=== PATIENT | female | born 1955 | race Caucasian/White ===

== ENCOUNTER → 2021-09-22 | Outpatient (CLI) | payer MEDICARE ==
--- NOTE | 2021-09-22 22:50 | BD ---
EXAMINATION TYPE: Axial Bone Density DATE OF EXAM: 09/22/2021 COMPARISON: NONE CLINICAL HISTORY: 66 years year old Female. ICD-10 CODE: Z78.0 ASYMPTOMATIC MENOPAUSAL STATE Height: 68.2 IN Weight: 161 LBS RISK FACTORS HISTORY OF: Active: YES Diet low in dairy products/other sources of calcium: YES Postmenopausal woman: AGE 44 Lost more than 2 inches in height since high school: YES 06/01" MEDICATIONS: Additional Medications: VIT D, DIGOXIN, EXAM MEASUREMENTS: Bone mineral densitometry was performed using the [employer] System. Bone mineral density as measured about the Lumbar spine is: ----- L1-L4(G/cm2): 1.145 T Score Values are as follows: ----- L1: -1.7 ----- L2: -0.8 ----- L3: 0.7 ----- L4: 0.5 ----- L1-L4: -0.3 Bone mineral density BASELINE Bone mineral density about the R hip (g/cm2): 0.802 Bone mineral density about the L hip (g/cm2): 0.790 T Score values are as follows: -----R Neck: -1.7 -----L Neck: -1.8 -----R Total: -0.8 -----L Total: -0.8 Bone mineral density BASELINE FRAX%s: The graph provided illustrates a 10.5 chance for a major osteoporotic fx and a 1.6 chance for the hips probability for fx in 10 years time. IMPRESSION: Osteopenia (T Score between -2.5 and -1). There is slightly increased risk of fracture and the patient may be considered for treatment. Re-Screen 2-5 years. NOTE: T-SCORE=SD OF THE YOUNG ADULT MEAN.
--- NOTE | 2021-09-24 09:39 | MM ---
Reason for exam: screening (asymptomatic). Last mammogram was performed 1 year and 1 month ago. Physical Findings: A clinical breast exam by your physician is recommended on an annual basis and results should be correlated with mammographic findings. MG 3D Screening Mammo W/Cad Bilateral CC and MLO view(s) were taken. Prior study comparison: September 06, 2020, mammogram, performed at [place]. August 15, 2019, mammogram, performed at [place]. July 22, 2017, mammogram, performed at [place]. The breast tissue is extremely dense which could obscure a lesion on mammography. There are benign appearing round calcifications bilaterally. There is no discrete abnormality. ASSESSMENT: Negative, BI-RAD 1 RECOMMENDATION: Routine screening mammogram of both breasts in 1 year. Some consider bilateral ultrasound surveillance in patient with extremely dense fibroglandular tissue.
== END | disposition home or self-care (01) ==
LOC: RADMAMWWP 15:50
PROVIDERS: ATTEND Internal Medicine
DX: Z12.31 Encounter for screening mammogram for malignant neoplasm of breast (principal); M85.89 Other specified disorders of bone density and structure, multiple sites; Z78.0 Asymptomatic menopausal state
CPT/HCPCS: 77063; 77067; 77080

== ENCOUNTER → 2021-10-07 | Outpatient (CLI) | payer MEDICARE | LOC: CPPFTMAIN 12:48 | PROVIDERS: ATTEND Internal Medicine | DX: R05.9 Cough, unspecified (principal) | CPT/HCPCS: 94060; 94726; 94729 ==

== ENCOUNTER → 2022-06-15 | Outpatient (CLI) | payer MEDICARE ==
--- NOTE | 2022-06-15 18:53 | CT ---
EXAMINATION TYPE: CT chest w con DATE OF EXAM: 06/15/2022 COMPARISON: None HISTORY: Dyspnea. Dry cough. Follow up from prior Xray. CT DLP: 185.0 mGycm, Automated exposure control for dose reduction was used. CONTRAST: Performed injected with 100cc mL of Isovue 300. TECHNIQUE: Axial images were obtained at 5 mm thick sections. Reconstructed images are reviewed on [employer] computer in the coronal plane. FINDINGS: There is a 1.4 cm irregular hypoechoic nodule within the anterior right lobe thyroid. This could be further evaluated with ultrasound. An additional 1.1 cm nodules in right lobe thyroid extend ing towards the superior mediastinum. There is a small nodule measuring 0.8 cm in length and the anterior lateral right upper lung field. S eries 4 image 42. Some small adjacent punctate nodules are present, example image series 4 image 41. There is thickening which may be along the major fissure on the left lung base measuring 1.8 x 0.8 cm . Series 4 image 51. No enlarged mediastinal or hilar adenopathy is evident. The ascending aorta diameter at the level o f the main pulmonary artery is 3.4 cm. The main pulmonary artery diameter at the bifurcation is 2.[address] sections are obtained through the upper abdomen. Abdomen is essentially unremarkable. Abnormality correlate with the posterior right lung base finding is not identified. IMPRESSIONS: 1. Small nodule right mid peripheral lung with some thickening along the lateral left major fissure. Consider PET CT for additional evaluation.
== END | disposition home or self-care (01) ==
LOC: RADCTMAIN 13:45
PROVIDERS: ATTEND Internal Medicine Critical Care Medicine
DX: J98.4 Other disorders of lung (principal); R91.1 Solitary pulmonary nodule; R06.00 Dyspnea, unspecified
CPT/HCPCS: 82565; 84520; 71260; 36415; Q9967

== ENCOUNTER → 2022-06-19 | Outpatient (CLI) | payer MEDICARE ==
--- NOTE | 2022-06-22 06:33 | US ---
EXAMINATION TYPE: US thyroid st tissue head/neck DATE OF EXAM: 06/19/2022 COMPARISON: Chest CT 4 days earlier CLINICAL HISTORY: E04.1 THYROID NODULE. thyroid nodule visualized on recent CT GLAND SIZE: Right Lobe: 5.5 x 2.2 x 2.6 cm Overall Parenchyma: heterogenous Left Lobe: 2.9 x 1.0 x 0.8 cm Overall Parenchyma: homogeneous Isthmus Thickness: 0.3 cm NODULES RIGHT: # of nodules measured on right: 3 1. 1.9 X 1.8 x 1.1 cm, mid , mixed cystic and solid, isoechoic nodule, which is wider than tall, wi th smooth margins, without echogenic foci. TR2 Prior size: no prior 2. 1.1 X 1.1 x 1.0 cm, lower , cystic or almost completely cystic, hypoechoic nodule, which is wide r than tall, with smooth margins, with echogenic foci. Prior size: no prior TR4 3. 2.3 X 1.5 x 1.3 cm, mid , solid or almost completely solid, isoechoic nodule, which is wider alee n tall, with smooth margins, with macrocalcifications. Prior size: no prior TR4 LEFT: # of nodules measured on left: 0 ISTHMUS: # of nodules measured in the isthmus: 0 Bilateral neck scanned, no evidence of lymphadenopathy. Slightly larger right thyroid lobe with right-sided nodules detailed above. IMPRESSION: As above. Advise sampling of largest right-sided nodule. 2017 ACR TI-RADS LEVEL: TR-RADS 4 - Moderately Suspicious: Follow if > 1 cm, FNA if > 1.5 cm *Highest TI-RADS level nodule reported
== END | disposition home or self-care (01) ==
LOC: RADUSWWP 16:43
PROVIDERS: ATTEND Internal Medicine
DX: E04.1 Nontoxic single thyroid nodule (principal)
CPT/HCPCS: 76536

== ENCOUNTER → 2022-12-17 | Outpatient (CLI) | payer MEDICARE ==
[2022-12-17 13:43] LABS: African American GFR (CKD) 79 (>60 ml/min/1.73 sqM); Blood Urea Nitrogen 27 mg/dL (7-17); Non-African American GFR(CKD) 69 (>60 ml/min/1.73 sqM)
--- NOTE | 2022-12-17 14:15 | CT ---
EXAMINATION TYPE: CT chest w con CT DLP: 1005 mGycm, Automated exposure control for dose reduction was used. DATE OF EXAM: 12/17/2022 2:07 PM COMPARISON: CT chest 06/15/2022 CLINICAL INDICATION:Female, 67 years old with history of R06.00 Dyspnea; PHH, Dyspnea TECHNIQUE: Multiple axial images were obtained through the chest following the administration of 100 cc of Isovue 300. . Coronal and sagittal reformats reviewed. FINDINGS: LUNGS/ PLEURA: No pleural effusion, pneumothorax, focal consolidation. Linear scarring identified wit hin the left lower lobe with improved thickening from prior examination. Similar tree-in-bud nodulari ty within the right middle lobe when compared to prior examination. No new or enlarging pulmonary nod ules. AIRWAY: Patent and unremarkable.. HEART: Size within normal limits. No pericardial effusion. MEDIASTINUM: No evidence of adenopathy. VASCULATURE: No aortic aneurysm. MUSCULOSKELETAL: No acute osseous abnormalities SOFT TISSUES/LYMPH NODES: Unremarkable. LOWER NECK: Multinodular thyroid gland redemonstrated.. UPPER ABDOMEN: Diffuse low-attenuation to the liver parenchyma is consistent with steatosis. ; Subcen timeter hypoattenuating focus within the left hepatic lobe which is too small characterize but likely represents a cyst. IMPRESSION: Similar tree-in-bud nodules within the right middle lobe likely representing an infectious/inflammato ry process. Additionally there is linear scarring within the left lower lobe with decreased thickness from prior examination. No new or enlarging pulmonary nodules.
== END | disposition home or self-care (01) ==
LOC: RADCTMAIN 12:23
PROVIDERS: ATTEND Internal Medicine Critical Care Medicine
DX: J98.4 Other disorders of lung (principal); R06.00 Dyspnea, unspecified; R91.8 Other nonspecific abnormal finding of lung field
CPT/HCPCS: 82565; 84520; 71260; 36415; Q9967

== ENCOUNTER → 2023-04-06 | Outpatient (CLI) | payer MEDICARE ==
--- NOTE | 2023-04-07 23:39 | MM ---
Reason for Exam: Screening (asymptomatic). Last mammogram was performed 1 year(s) and 7 month(s) ago. Patient History: Menarche at age 13. Patient has no children. Postmenopausal. Risk Values: Rosalinda 5 year model risk: 1.7%. NCI Lifetime model risk: 5.6%. Prior Study Comparison: 08/15/2019 Screening Mammogram, [place]. 09/06/2020 Screening Mammogram, [place]. 09/22/2021 Bilateral Screening Mammogram, [facility]. Tissue Density: The breast tissue is heterogeneously dense. This may lower the sensitivity of mammography. Findings: Analyzed By CAD. Scattered few benign rounded punctate calcifications redemonstrated on both sides. There is no suspicious group of microcalcifications or new suspicious mass in either breast. Overall Assessment: Benign, BI-RAD 2 Management: Screening Mammogram of both breasts in 1 year. . Patient should continue monthly self-breast exams. A clinical breast exam by your physician is recommended on an annual basis. This exam should not preclude additional follow-up of suspicious palpable abnormalities. Note on Rosalinda scores and lifetime risk: 1. A Rosalinda score greater than 3% is considered moderate risk. If this is the case, consider specialist referral to assess eligibility for a risk reducing agent. 2. If overall lifetime risk for the development of breast cancer is 20% or higher, the patient may qualify for future screening with alternating mammogram and breast MRI. Electronically signed and approved by: Reilly Yost M.D. Radiologist
== END | disposition home or self-care (01) ==
LOC: RADMAMWWP 16:48
PROVIDERS: ATTEND Internal Medicine
DX: Z12.31 Encounter for screening mammogram for malignant neoplasm of breast (principal); Z78.0 Asymptomatic menopausal state
CPT/HCPCS: 77063; 77067

== ENCOUNTER → 2023-04-26 | Outpatient (CLI) | payer MEDICARE ==
--- NOTE | 2023-04-26 10:26 | US ---
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 FINDINGS: EXAM MEASUREMENTS: Liver Length: 16.0 cm Gallbladder Wall: 0.2 cm CBD: 0.3 cm Spleen: 11.2 cm Right Kidney: 10.7 x 4.4 x 4.9 cm Left Kidney: 9.7 x 4.7 x 4.9 cm Pancreas: wnl Liver: attenuating, heterogeneous, increased echogenicity Gallbladder: multiple small non shadowing non mobile foci along wall with largest measuring 0.4cm Evidence for sonographic Biswas's sign: no CBD: wnl Spleen: wnl Right Kidney: wnl Left Kidney: wnl Upper IVC: wnl Abd Aorta: wnl The liver is homogenous. The intrahepatic portion of the IVC and proximal abdominal aorta are within normal limits. There is no evidence of cholelithiasis. Common bile duct is unremarkable. The visu alized portions of the pancreas are homogenous. The spleen is unremarkable. Kidneys are symmetric a nd free of hydronephrosis. No renal lesions are seen. IMPRESSION: 1. No evidence for acute process. 2. Hepatic steatosis 3. Cholelithiasis.
== END | disposition home or self-care (01) ==
LOC: RADUSWWP 09:41
PROVIDERS: ATTEND Internal Medicine
DX: K76.0 Fatty (change of) liver, not elsewhere classified (principal); K80.20 Calculus of gallbladder without cholecystitis without obstruction; E80.6 Other disorders of bilirubin metabolism
CPT/HCPCS: 76700

== ENCOUNTER → 2023-10-01 | Outpatient (CLI) | payer MEDICARE ==
[2023-10-01 15:43] LABS: BUN/Creat Ratio 27.78 Ratio (12.00-20.00); Carbon Dioxide 25.1 mmol/L (21.6-31.8); Chloride 104 mmol/L (96-109); Glucose 89 mg/dL (70-110); Potassium 4.7 mmol/L (3.5-5.5); Sodium 142 mmol/L (135-145)
[2023-10-01 15:44] LABS: ALT 25 U/L (8-44); AST 21 U/L (13-35); Albumin 4.9 g/dL (3.8-4.9); Albumin/Globulin Ratio 2.13 Ratio (1.60-3.17); Alkaline Phosphatase 85 U/L (41-126); Calcium 10.1 mg/dL (8.7-10.3); Globulin 2.3 g/dL (1.6-3.3); Total Bilirubin 1.3 mg/dL (0.3-1.2); Total Protein 7.2 g/dL (6.2-8.2)
== END | disposition home or self-care (01) ==
LOC: LABWHC1 10:34
PROVIDERS: ATTEND Internal Medicine Clinical Cardiac Electrophysiology
DX: I48.0 Paroxysmal atrial fibrillation (principal)
CPT/HCPCS: 36415; 80053; 83735; 84443

== ENCOUNTER → 2023-10-01 | Outpatient (CLI) | payer MEDICARE ==
--- NOTE | 2023-10-01 12:46 | US ---
EXAMINATION TYPE: US thyroid st tissue head/neck DATE OF EXAM: 10/01/2023 COMPARISON: 02/23/2023 CLINICAL INDICATION: Female, 68 years old with history of E04.1 NONTOXIC SINGLE THYROID NODULE; follo w up on known right nodules GLAND SIZE: Right Lobe: 4.9 x 2.1 x 1.1 cm Overall Parenchyma: heterogeneous Left Lobe: 3.2 x 1.1 x 0.6 cm Overall Parenchyma: homogeneous Isthmus Thickness: 0.2 cm NODULES RIGHT: # of nodules measured on right: 3 1. 1.9 X 1.1 x 1.8 cm mixed nodule, which is wider than tall, with smooth margins. Prior size: 2.3 x 1.4 x 1.4 cm 2. 1.2 X 1.1 x 1.2 cm, solid nodule, which is wider than tall, with smooth margins. Prior size: 1.8 x 1.1 x 1.7 cm 3. 0.6cm solid calcified nodule, which is wider than tall. LEFT: # of nodules measured on left: 0 ISTHMUS: # of nodules measured in the isthmus: 0 Bilateral neck scanned, no evidence of lymphadenopathy. IMPRESSION: 1. No thyromegaly. 2. 2 right thyroid nodules which have decreased in size in the interval. 2017 ACR TI-RADS LEVEL: TR 3 *Highest TI-RADS level nodule reported
== END | disposition home or self-care (01) ==
LOC: RADUSWWP 11:02
PROVIDERS: ATTEND Internal Medicine
DX: E04.2 Nontoxic multinodular goiter (principal)
CPT/HCPCS: 76536

== ENCOUNTER 2023-12-27 11:08 | Day surgery (SDC) | payer MEDICARE ==
[2023-12-27] MEDS: SODIUM CHLORIDE 0.9% 1,000 ML IV SCH (12:37)
[2023-12-27 13:07] LABS: Basophils # (A) 0.1 k/uL (0-0.2); Basophils % (A) 1 %; Eosinophils # (A) 0.1 k/uL (0-0.7); Eosinophils % (A) 2 %; HCT 43.7 % (34.0-46.0); HGB 14.6 gm/dL (11.4-16.0); Lymphocytes # (A) 1.9 k/uL (1.0-4.8); Lymphocytes % (A) 26 %; MCH 30.9 pg (25.0-35.0); MCHC 33.4 g/dL (31.0-37.0); MCV 92.4 fL (80.0-100.0); Mean Platelet Volume 6.9; Monocytes # (A) 0.4 k/uL (0-1.0); Monocytes % (A) 6 %; Neutrophils # (A) 4.5 k/uL (1.3-7.7); Neutrophils % (A) 63 %; Platelet Count 282 k/uL (150-450); RBC 4.73 m/uL (3.80-5.40); RDW 13.7 % (11.5-15.5); WBC 7.2 k/uL (3.8-10.6)
[2023-12-27 13:28] LABS: ALT 21 U/L (4-34); AST 25 U/L (14-36); African American GFR (CKD) >90 (>60 ml/min/1.73 sqM); Albumin 4.7 g/dL (3.5-5.0); Alkaline Phosphatase 91 U/L (38-126); Anion Gap 9 mmol/L; Blood Urea Nitrogen 21 mg/dL (7-17); Calcium 9.4 mg/dL (8.4-10.2); Carbon Dioxide 24 mmol/L (22-30); Chloride 106 mmol/L (98-107); Glucose 124 mg/dL (74-99); Non-African American GFR(CKD) 79 (>60 ml/min/1.73 sqM); Potassium 4.5 mmol/L (3.5-5.1); Sodium 139 mmol/L (137-145); Total Bilirubin 2.2 mg/dL (0.2-1.3); Total Protein 7.5 g/dL (6.3-8.2)
[2023-12-27] MEDS ORDERED: fentaNYL (PF) 50 MCG/ML 2 ML AMP ONE (14:10)
[2023-12-27] MEDS ORDERED: diphenhydrAMINE 50 MG/ML 1 ML VIAL ONE (14:10)
[2023-12-27] MEDS ORDERED: ISOPROTERENOL 250 MCG/1.25 ML SYR IV ONE (14:10)
[2023-12-27] MEDS ORDERED: PROPOFOL 10 MG/ML 20 ML VIAL IV ONE (14:10)
[2023-12-27] MEDS ORDERED: MIDAZOLAM 2 MG/2 ML VIAL ONE (14:10)
[2023-12-27] MEDS: IV FLUID CONTINUATION 1,000 ML IV ONE (14:21)
[2023-12-27] MEDS: HEPARIN SODIUM,PORCINE 10,000 UNIT in SODIUM CHLORIDE 0.9% 1,000 ML IRRIGATION ONE (14:21)
[2023-12-27] MEDS ORDERED: LIDOCAINE 1% INJ 10MG/ML (20 ML MDV) ONE (14:21)
[2023-12-27] MEDS: LIDOCAINE 1% INJ 10MG/ML (20 ML MDV) SQ ONE (14:41)
[2023-12-27] MEDS: HEPARIN SODIUM (1,000 UNIT/ML) 1,000 UNIT in SODIUM CHLORIDE 0.9% 1,000 ML IRRIGATION ONE (16:33)
[2023-12-27] MEDS ORDERED: ACETAMINOPHEN TAB 325 MG TAB PO PRN (16:48)
--- NOTE | 2023-12-27 16:54 | P.HPCAR ---
History of Present Illness This is Dr. Armstrong dictating an H/P on this patient The patient was interviewed and examined IMPRESSION / ASSESSMENT: Recurrent palpitations, adenosine sensitive SVT Symptomatic with shortness of breath during her arrhythmia Dyslipidemia, on statins Mild mitral prolapse Nighttime bradycardia Paroxysmal atrial fibrillation PLAN: Diagnostic EP study and radiofrequency ablation HPI Patient continues to have episodes of palpitations they have asymptomatic and make her very short of breath No loss of consciousness no dizziness no lightheadedness ROS: No fever chills or rigors, no cough, phlegm or expectoration, no nausea, vomiting or diarrhea, no hematuria, dysuria, no musculoskeletal complaints, no strokes or seizures, no skin lesions. EXAMINATION: Afebrile pulse rate in the 70s blood pressure 157/76 mmHg Heart sounds S1-S2 normal no murmurs gallops or rubs Extremities warm no edema REVIEW OF LABS, ECG & MEDICAL DATA Hemoglobin normal white count normal platelet count normal Electrolytes normal renal function normal bilirubin 2.2 Normal TSH is 0.9 Physical Exam Vitals: Vital Signs Temp Pulse Resp BP Pulse Ox 12/27/23 12:49 98.3 F 71 16 157/76 100 Intake and Output 12/27/23 12/27/23 12/27/23 06:59 14:59 22:59 Intake Total 750 130 Balance 750 130 Intake: IV 750 130 Past Medical History Past Medical History: Hyperlipidemia Additional Past Medical History / Comment(s): tachycardia on digoxin, patient states she has had her heart stopped twice and a medication given to be back in synch, thyroid nodules, lung nodules being followed by Dr Canela, see Dr. Armstrong's H & P History of Any Multi-Drug Resistant Organisms: None Reported Past Surgical History: Tubal Ligation Additional Past Surgical History / Comment(s): D+C, varicose vein ablation Past Anesthesia/Blood Transfusion Reactions: No Reported Reaction Smoking Status: Never smoker - Past Family History Mother Family Medical History: Cancer Additional Family Medical History / Comment(s): colon ca Father Family Medical History: Cancer, Myocardial Infarction (MT) Additional Family Medical History / Comment(s): non hodgkins lymphoma Physical Examination Vital Signs Temp Pulse Resp BP Pulse Ox 12/27/23 12:49 98.3 F 71 16 157/76 100 Intake and Output 12/27/23 12/27/23 12/27/23 06:59 14:59 22:59 Intake Total 750 130 Balance 750 130 Intake: IV 750 130 Results 12/27/23 12:45 12/27/23 12:45 Cardiac Enzymes 12/27/23 Range/Units 12:45 AST 25 (14-36) U/L CBC 12/27/23 Range/Units 12:45 WBC 7.2 (3.8-10.6) k/uL RBC 4.73 (3.80-5.40) m/uL Hgb 14.6 (11.4-16.0) gm/dL Hct 43.7 (34.0-46.0) % Plt Count 282 (150-450) k/uL Comprehensive Metabolic Panel 12/27/23 Range/Units 12:45 Sodium 139 (137-145) mmol/L Potassium 4.5 (3.5-5.1) mmol/L Chloride 106 (98-107) mmol/L Carbon Dioxide 24 (22-30) mmol/L BUN 21 H (7-17) mg/dL Creatinine 0.77 (0.52-1.04) mg/dL Glucose 124 H (74-99) mg/dL Calcium 9.4 (8.4-10.2) mg/dL AST 25 (14-36) U/L ALT 21 (4-34) U/L Alkaline Phosphatase 91 (38-126) U/L Total Protein 7.5 (6.3-8.2) g/dL Albumin 4.7 (3.5-5.0) g/dL Current Medications Generic Name Dose Route Start Last Admin Trade Name Freq PRN Reason Stop Dose Admin Acetaminophen 650 mg 12/27/23 16:48 Acetaminophen Tab 325 Mg Tab PO Q6HR PRN Mild Pain (Scale 1 to 3) Apixaban 5 mg 12/27/23 21:00 Apixaban 5 Mg Tab PO BID [facility] Protocol Atorvastatin Calcium 20 mg 12/27/23 21:00 Atorvastatin 20 Mg Tab PO HS [facility] Digoxin 250 mcg 12/28/23 09:00 Digoxin 250 Mcg Tab PO DAILY [facility] Ferrous Sulfate 325 mg 12/28/23 09:00 Ferrous Sulfate 325 Mg Tab PO DAILY [facility] Sodium Chloride 1,000 mls @ 20 mls/hr 12/27/23 05:41 12/27/23 12:37 Saline 0.9% IV 01/26/24 05:40 20 mls/hr .Q24H [facility]HE Administration Acetaminophen 1,000 mg/ IV 100 mls @ 400 mls/hr 12/27/23 16:48 Solution IVPB 12/27/23 17:02 ONCE ONE Melatonin 10 mg 12/27/23 21:00 Melatonin 5 Mg Tablet PO HS [facility]HE Sodium Chloride 12 ml 12/27/23 16:48 Sodium Chloride 0.9% Flush 10 Ml Syringe IV Q12HR PRN Line Flush Intake and Output 12/27/23 12/27/23 12/27/23 06:59 14:59 22:59 Intake Total 750 130 Balance 750 130 Intake: IV 750 130 12/27/23 12:45 12/27/23 12:45
--- NOTE | 2023-12-27 17:02 | P.EPPROC ---
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 Right atrial tachycardia 2. Septal/left atrial tachycardia 3. Left atrial tachycardia with eccentric atrial activation Plan Resume digoxin Discontinue use of fish oil Discontinue use of marijuana Assessment for sleep apnea Consider low-dose flecainide Details Patient was brought to the EP lab in a fasting state. Written informed consent was obtained prior to the procedure. Venous sheaths were placed on the right left femoral veins and via these diagnostic catheters were positioned in the high right atrium His bundle area coronary sinus and right ventricle A full EP study was performed both on and off Isopril Para-Hisian pacing revealed a tucker response Sinus cycle length 802 ms, WV interval 157 ms, QRS 91 and QT 414 ms AH 81 and HV 59 ms AV node Wenckebach block 500 ms VA Wenckebach block 290 ms Tucker response to Para-Hisian pacing Sinus node recovery times were 1042 and 1018 ms Slow pathway was noted at around 310 ms Bursts of SVT with a short separate time was induced only on Isopril On Isopril multiple different tachycardias were induced 1. Bursts of AV tucker reentry 2. Right atrial tachycardia, high to low atrial activation sequence 3. An atrial tachycardia with earliest atrial activity in the hiss bundle catheters, VAAV response documented 4. An eccentric atrial tachycardia 5. Frequent PACs atrial couplets and triplets of different morphologies Using a long sheath and an RF irrigated tip catheter, slow pathway ablation was successfully performed Junctional rhythm obtained Following that there was no evidence for slow pathway conduction However on Isopril concentric as well as an eccentric atrial tachycardia were induced. 1 would merged to the other This was very sensitive to the use of Isopril but 1 tachycardia with change into another making mapping impossible Ice. All catheters were removed. Vascade closure was used to obtain hemostasis
[2023-12-27] MEDS: ACETAMINOPHEN IV (For NPO) 1,000 MG in EMPTY BAG 1 BAG IVPB ONE (18:18)
[2023-12-27] MEDS: ATORVASTATIN 20 MG TAB PO SCH (20:31)
[2023-12-27] MEDS: APIXABAN 5 MG TAB PO SCH (20:31)
[2023-12-27] MEDS: MELATONIN 5 MG TABLET PO SCH (20:31)
--- NOTE | 2023-12-28 10:08 | P.DS ---
Providers Attending physician: Roscoe Armstrong [facility] Course: This a 68-year-old female who underwent AV diane reentry tachycardia ablation with Dr. Armstrong on 12/27/2023. Patient is doing well post procedure. She was deemed stable for discharge home today. Patient was instructed to discontinue her fish oil. Her digoxin was also decreased to 125 mcg daily and she was started on flecainide 25 mg twice a day. Please see EMR for further hospital course details. Discharge diagnosis Recurrent SVT Right atrial tachycardia Septal/left atrial tachycardia Left atrial tachycardia with eccentric atrial activation Status post ablation Nurse practitioner note has been reviewed by physician. Signing provider agrees with the documented findings, assessment, and plan of care documented by PREVENTION RN as a scribe. Plan - Discharge Summary Discharge Rx Participant: No New Discharge Prescriptions: New Digoxin [Lanoxin] 125 mcg PO DAILY #90 tab Flecainide [Tambocor] 25 mg PO Q12HR #90 tablet Continue Cholecalciferol [Vitamin D3 (25 Mcg = 1000 Iu)] 50 mcg PO DAILY Apixaban [Eliquis] 5 mg PO BID Collagen/Biotin/Ascorbic Acid [Collagen 1500 Plus C Capsule] 1 cap PO DAILY Ferrous Sulfate [Iron (65 MG Elemental)] 325 mg PO DAILY Cyanocobalamin [Vitamin B-12] 500 mcg PO DAILY Melatonin [Melatonin ER] 10 mg PO HS Simvastatin 40 mg PO HS Discontinued Digoxin 250 mcg PO DAILY Fish Oil/Dha/Epa [Fish Oil 1,200 mg Fish Oil] 1 each PO DAILY Discharge Medication List Cholecalciferol [Vitamin D3 (25 Mcg = 1000 Iu)] 50 mcg PO DAILY 06/24/22 [History] Cyanocobalamin [Vitamin B-12] 500 mcg PO DAILY 06/24/22 [History] Ferrous Sulfate [Iron (65 MG Elemental)] 325 mg PO DAILY 06/24/22 [History] Melatonin [Melatonin ER] 10 mg PO HS 06/24/22 [History] Simvastatin 40 mg PO HS 06/24/22 [History] Apixaban [Eliquis] 5 mg PO BID 12/24/23 [History] Collagen/Biotin/Ascorbic Acid [Collagen 1500 Plus C Capsule] 1 cap PO DAILY 12/24/23 [History] Digoxin [Lanoxin] 125 mcg PO DAILY #90 tab 12/28/23 [Rx] Flecainide [Tambocor] 25 mg PO Q12HR #90 tablet 12/28/23 [Rx] Follow up Appointment(s)/Referral(s): Roscoe Armstrong MD [STAFF PHYSICIAN] - 01/04/24 11:00 am Activity/Diet/Wound Care/Special Instructions: Post EP study - Ablation instructions 1. Keep access sites dry for 2 days. 2. No heavy lifting or straining for 2 days. 3. Avoid bending the hips repeatedly for 2 days. 4. You may go up and down stairs slowly Call if the following is noted 1. Bleeding, increasing swelling or pain at the access sites. 2. Increasing chest discomfort, especially upon taking a deep breath. 3. Increasing shortness of breath, at rest or with exertion. 4. Undue cough / phlegm 5. Difficulty or pain while swallowing. 6. Pain or change in color in the extremities. 7. Fever, chills, rigors. 8. Increasing headache or neurologic symptoms. 9. Dizziness, fainting, palpitations Avoid marijuana/cannabis Stop fish oil Discharge Disposition: HOME SELF-CARE
[2023-12-28] MEDS: FERROUS SULFATE 325 MG TAB PO SCH (10:18)
[2023-12-28] MEDS: FLECAINIDE 50 MG TAB PO SCH (10:18)
[2023-12-28] MEDS: DIGOXIN 250 MCG TAB PO SCH (10:18)
[2023-12-28 14:57] VITALS: BP 152/83; PULSE 64; RESP 17; TEMP 98.2
== END 2023-12-28 15:09 | disposition home or self-care (01) ==
LOC: CATHEP 11:08 → 6NMEDSUR 16:35 → CATHEP 12-28 15:09
PROVIDERS: ATTEND Internal Medicine Clinical Cardiac Electrophysiology
DX: I34.1 Nonrheumatic mitral (valve) prolapse (principal); I47.19 Other supraventricular tachycardia; E78.5 Hyperlipidemia, unspecified; I48.0 Paroxysmal atrial fibrillation; Z80.0 Family history of malignant neoplasm of digestive organs; Z98.51 Tubal ligation status; Z98.890 Other specified postprocedural states
CPT/HCPCS: 93623; 93653; 86900; 86901; 80053; 84443; 85025; 86850; C1894; C1769 ×2; C1760; C1766; C1730 ×3; C1732; J1644 ×2; J2001

== ENCOUNTER → 2024-04-21 | Outpatient (CLI) | payer MEDICARE ==
--- NOTE | 2024-04-22 11:06 | BD ---
EXAMINATION TYPE: Axial Bone Density DATE OF EXAM: 04/21/2024 CLINICAL HISTORY: 69 years old Female. ICD-10 CODE: M85.80 OSTEOPENIA , Additional History: Height: 68.5 Weight: 161 FRAX RISK QUESTIONS: Family History (Parent hip fracture): no History of Fracture in Adulthood: no Secondary Osteoporosis: no RISK FACTORS HISTORY OF: Surgery to Spine/Hip(right/left)/Wrist (right/left): no MEDICATIONS: Thyroid Medications: no Osteoporosis Medications: no EXAM MEASUREMENTS: Bone mineral densitometry was performed using the [employer] System. Bone mineral density as measured about the Lumbar spine is: ----- L1-L4(G/cm2): 1.144 T Score Values are as follows: ----- L1: -1.5 ----- L2: -1.1 ----- L3: 1.1 ----- L4: 0.2 ----- L1-L4: -0.3 Z Score Values are as follows: ----- L1: -0.1 ----- L2: 0.3 ----- L3: 2.5 ----- L4: 1.6 ----- L1-L4: 1.1 Bone mineral density has: Increased 3.4% since study of: 09/22/2021 Bone mineral density about the R hip (g/cm2): 0.916 Bone mineral density about the L hip (g/cm2): 0.921 T Score values are as follows: -----R Neck: -1.8 -----L Neck: -1.7 -----R Total: -0.7 -----L Total: -0.7 Z Score values are as follows: -----R Neck: -0.3 -----L Neck: -0.2 -----R Total: 0.5 -----L Total: 0.6 Bone mineral density has: Increased 1.5% since study of: 09/22/2021 FRAX%s: The graph provided illustrates a 11.1% chance for a major osteoporotic fx and a 2.0% chance f or the hips probability for fx in 10 years time. IMPRESSION: Normal (Values between +1 and -1 indicate normal bone mass). Consider repeating this study in 5 year s or sooner if there is some new clinical indication. NOTE: T-SCORE=SD OF THE YOUNG ADULT MEAN. [facility], , 04/22/2024 11:04 AM
--- NOTE | 2024-04-25 18:01 | MM ---
Reason for Exam: Screening (asymptomatic). Last screening mammogram was performed 12 month(s) ago. Patient History: Menarche at age 13. Patient has no children. Postmenopausal. Risk Values: Rosalinda 5 year model risk: 1.7%. NCI Lifetime model risk: 5.1%. Prior Study Comparison: 09/06/2020 Screening Mammogram, [place]. 09/22/2021 Bilateral Screening Mammogram, [facility]. 04/06/2023 Bilateral MG 3D screening mammo w/cad, [facility]. Tissue Density: The breasts are heterogeneously dense, which may obscure small masses. Findings: Analyzed By CAD. Focal asymmetry lower inner quadrant right breast posterior depth appears more defined and incompletely disperses on 3-D images. This may represent superimposition shadow but further evaluation is recommended. Otherwise, no significant change. Overall Assessment: Incomplete: need additional imaging evaluation, BI-RAD 0 Management: Special View Mammogram of the right breast. . [facility] will attempt to contact patient to return for supplemental views and ultrasound if indicated. [facility], , 04/25/2024 5:57 PM. Electronically signed and approved by: Reilly Yost M.D. Radiologist
== END | disposition home or self-care (01) ==
LOC: RADMAMWWP 15:20
PROVIDERS: ATTEND Internal Medicine
DX: Z12.31 Encounter for screening mammogram for malignant neoplasm of breast (principal); M85.80 Other specified disorders of bone density and structure, unspecified site; Z78.0 Asymptomatic menopausal state; R92.333 Mammographic heterogeneous density, bilateral breasts
CPT/HCPCS: 77063; 77067; 77080

== ENCOUNTER → 2024-05-05 | Outpatient (CLI) | payer MEDICARE ==
--- NOTE | 2024-05-05 13:59 | MM ---
Reason for Exam: Clinical finding. Last screening mammogram was performed less than 1 month ago. Patient History: Menarche at age 13. Patient has no children. Postmenopausal. Risk Values: Rosalinda 5 year model risk: 1.7%. NCI Lifetime model risk: 5.1%. Tissue Density: Right: The breasts are heterogeneously dense, which may obscure small masses. Findings: Analyzed By CAD. Right breast benign-appearing calcification. Area of concern/asymmetry compresses out on spot compression imaging. No suspicious masses, calcifications or distortions. Overall Assessment: Benign, BI-RAD 2 Management: Screening Mammogram of both breasts in 1 year. Results were given to the patient verbally at the time of exam. Patient should continue monthly self-breast exams. A clinical breast exam by your physician is recommended on an annual basis. This exam should not preclude additional follow-up of suspicious palpable abnormalities. Note on Rosalinda scores and lifetime risk: 1. A Rosalinda score greater than 3% is considered moderate risk. If this is the case, consider specialist referral to assess eligibility for a risk reducing agent. 2. If overall lifetime risk for the development of breast cancer is 20% or higher, the patient may qualify for future screening with alternating mammogram and breast MRI. [facility], , 05/05/2024 1:55 PM. Electronically signed and approved by: Shivam Murray DO
== END | disposition home or self-care (01) ==
LOC: RADMAMWWP 13:26
PROVIDERS: ATTEND Internal Medicine
DX: R92.8 Other abnormal and inconclusive findings on diagnostic imaging of breast (principal); R92.333 Mammographic heterogeneous density, bilateral breasts; Z78.0 Asymptomatic menopausal state
CPT/HCPCS: 77065; G0279; 77061

== ENCOUNTER → 2024-10-02 | Outpatient (CLI) | payer MEDICARE ==
--- NOTE | 2024-10-03 07:55 | US ---
EXAMINATION TYPE: US thyroid st tissue head/neck DATE OF EXAM: 10/02/2024 COMPARISON: 10/01/2023 and 02/23/2023 CLINICAL INDICATION: Female, 69 years old with history of E04.1 THYROID NODULE; F/U nodules TECHNIQUE: Grayscale and color Doppler imaging of the thyroid gland. FINDINGS: GLAND SIZE: Right Lobe: 5.8 x 2.2 x 1.5 cm Overall Parenchyma: heterogeneous Left Lobe: 2.9 x 0.8 x 1.1 cm Overall Parenchyma: homogeneous Isthmus Thickness: 0.2 cm Data Conversion Developer notes: Today's nodule measurements reflect better on scan done on 02/23/2023, rather th an on 10/01/2023 NODULES RIGHT: # of nodules measured on right: 3 1. 2.1 X 1.3 x 1.8 cm, mid medial, mixed cystic and solid, hypoechoic nodule, which is wider than t all, with smooth margins, without echogenic foci. Half or just over half is solid. TR4. Prior size: 1.8 x 1.1 x 1.7 cm 2. 1.8 X 1.4 x 1.5 cm, lower, solid or almost completely solid, hypoechoic TR4 nodule, which is wid er than tall, with ill-defined margins, without echogenic foci. Prior size: 1.3 x 1.3 x 1.4 cm 3. 2.1 X 1.1 x 1.5 cm, mid, solid or almost completely solid, isoechoic nodule, which is wider than tall, with smooth margins, with echogenic foci. TR4 due to the calcification. Prior size: 2.3 x 1.4 x 1.4 cm LEFT: # of nodules measured on left: 0 ISTHMUS: # of nodules measured in the isthmus: 0 Data Conversion Developer notes: Bilateral neck scanned, no evidence of lymphadenopathy. Three nodules right lobe a s described above. IMPRESSION: 1. Multinodular right lobe. Two of the TR4 nodules show slight interval increase in size, now 2.1 cm versus 1.8 cm, previously; now 1.8 cm versus 1.4 cm, previously. 2. The third TR4 nodule (the one with calcification) at the lower pole may be slightly smaller now 2. 1 cm versus 2.3 cm, previously. TR4: If nodule size is ? 1.5 cm, FNA is recommended. If nodule size is ? 1.0 cm, follow-up imaging at 1, 2, 3, and 5 years is recommended. [facility], Workstation: [facility], 10/03/2024 7:52 AM
== END | disposition home or self-care (01) ==
LOC: RADUSWWP 16:29
PROVIDERS: ATTEND Internal Medicine
DX: E04.2 Nontoxic multinodular goiter (principal)
CPT/HCPCS: 76536